=== PATIENT | male | born 1975 | race Caucasian/White ===

== ENCOUNTER 2020-03-19 01:06 | Observation (INO) | payer BC ==
[2020-03-19] MEDS ORDERED: HYDROmorphone 1 MG/ML Syringe IVPUSH STA (01:31)
[2020-03-19] MEDS ORDERED: Ondansetron 4 MG/2 ML SDV IVPUSH ONE (01:31)
[2020-03-19] MEDS ORDERED: Sodium Chloride 0.9% 1,000 ML IV SCH (01:45)
--- NOTE | 2020-03-19 01:54 | EDM.PDOC ---
ED HPI GENERAL MEDICAL PROBLEM - General Chief Complaint: Flank Pain Stated Complaint: RIGHT SIDE PAIN THAT RADIATES TO BACK Time Seen by Provider: 03/19/20 01:16 Source of Information: Reports: Patient, Family () History Limitations: Reports: No Limitations - History of Present Illness INITIAL COMMENTS - FREE TEXT/NARRATIVE: Mr. Brown is a very pleasant 44-year-old gentleman with no chronic medical problems, on no medications, who now presents the ED after developing sudden onset sharp right back pain that radiates around to his upper right abdomen/lower right chest, around 23:00 last night. States that the pain is constant, and he has not identified any modifiers, such as with position, taking deep breaths, moving, etc. He states that he took 2 Advil, which has not helped his symptoms at all. He has had nausea, and vomited once in the ER. The patient states that he had virtually identical symptoms this past Tuesday night, 03/11/2020. They resolved after about 2 to 3 hours, without treatment. The patient states that he ate dinner, consisting of meat and beans, around 18:00 last night. He has not eaten anything since. There are in the ED, the patient's initial BP is found to be mildly elevated at 158/98, otherwise, he is hemodynamically stable, afebrile, saturating 99% on room air. Other than the similar symptoms last Tuesday night, prior to 23:00 last night, the patient denies having a recent fever, chills, sore throat, ear pain, nasal or sinus congestion, cough, dyspnea, chest pain, palpitations, nausea, vomiting, constipation, diarrhea, abdominal pain, urinary symptoms, recent weight gain or weight loss, recent bloody bowel movements or black bowel movements, recent joint aches, headaches, or rashes. The patient's PCP is ANNALEE Love. His Neurosurgeon is Dr. Shai Christie. He has not received an influenza vaccine this season, and declined an offer to get one here in the ED. Right Abdomen Pain Score (Numeric/FACES): 9 - Related Data Allergies Allergy/AdvReac Type Severity Reaction Status Date / Time codeine Allergy Hallucinati Verified 03/19/20 05:50 ons Home Meds: Home Meds Multivitamin [Multivitamins] 1 each PO DAILY 07/04/15 [History] Past Medical History - Past Surgical History GI Surgical History: Reports: Appendectomy Musculoskeletal Surgical History: Reports: Arthroscopic Knee (left, x 2), Other (See Below) (Right thumb recnstruction) Social & Family History - Tobacco Use Tobacco Use Within Last Twelve Months: Smokeless Tobacco (Chews 1 can/week) Second Hand Smoke Exposure: No - Caffeine Use Caffeine Use: Reports: Coffee, Soda - Alcohol Use Alcohol Use History: Yes Alcohol Use Frequency: Rarely - Recreational Drug Use Recreational Drug Use: No - Living Situation & Occupation Living situation: Reports: , with Spouse, with Family (4 kids) Occupation: Employed ([employer] p[employer]) ED ROS GENERAL - Review of Systems Review Of Systems: Comprehensive ROS is negative, except as noted in HPI. ED EXAM, GI/ABD - Physical Exam Exam: See Below Exam Limited By: No Limitations General Appearance: Alert, WD/WN, Mild Distress (appears uncomfortable) Eyes: Bilateral: Normal Appearance, EOMI Ears: Normal External Exam, Hearing Grossly Normal Nose: Normal Inspection Throat/Mouth: Normal Inspection, Normal Lips, Normal Voice, No Airway Compromise Head: Atraumatic, Normocephalic Neck: Normal Inspection, Full Range of Motion Respiratory/Chest: No Respiratory Distress, Lungs Clear, Normal Breath Sounds, No Accessory Muscle Use Cardiovascular: Normal Peripheral Pulses, Regular Rate, Rhythm, No Edema, No Gallop, No JVD, No Murmur, No Rub GI/Abdominal Exam: Soft, No Organomegaly, No Distention, No Abnormal Bruit, No Mass, Tender (Right upper quadrant only. Nontender elsewhere, including no Rovsing sign. True Juarez sign present.), Abnormal Bowel Sounds (somewhat diminished) (Male) Exam: Deferred Back Exam: Normal Inspection, Full Range of Motion. No: CVA Tenderness (L), CVA Tenderness (R) Extremities: Normal Inspection, Normal Range of Motion, No Pedal Edema, Normal Capillary Refill Neurological: Alert, Oriented, Normal Cognition, No Motor/Sensory Deficits Psychiatric: Normal Affect Skin Exam: Warm, Dry, Intact, Normal Color, No Rash Course - Vital Signs Last Recorded V/S: Last Vital Signs Temp 36.6 C 03/19/20 05:23 Pulse 66 03/19/20 05:23 Resp 18 03/19/20 05:23 BP 116/70 03/19/20 05:23 Pulse Ox 94 L 03/19/20 05:23 - Orders/Labs/Meds Orders: Active Orders 24 hr Category Date Time Status Abdomen Ltd [US] Stat Exams 03/19/20 01:31 Taken Abdomen Pelvis w Cont [CT] Stat Exams 03/19/20 01:31 Taken Lactated Ringers [Ringers, Lactated] 1,000 ml Med 03/19/20 05:15 Active IV ASDIRECTED Medication Orders Hydromorphone HCl (Dilaudid) 1 mg IVPUSH Q1H PRN PRN Reason: Pain Lactated Ringer's (Ringers, Lactated) 1,000 mls @ 125 mls/hr IV ASDIRECTED RUBY Last Admin: 03/19/20 05:11 Dose: 125 mls/hr Documented by: KATHIE Ondansetron HCl (Zofran) 4 mg IVPUSH Q6H PRN PRN Reason: Nausea/Vomiting Labs: Laboratory Tests 03/19/20 03/19/20 03/19/20 Range/Units 01:20 01:20 04:20 WBC 10.97 H (4.23-9.07) K/mm3 RBC 4.87 (4.63-6.08) M/mm3 Hgb 13.7 (13.7-17.5) gm/dl Hct 41.4 (40.1-51.0) % MCV 85.0 (79.0-92.2) fl MCH 28.1 (25.7-32.2) pg MCHC 33.1 (32.2-35.5) g/dl RDW Std Deviation 37.7 (35.1-43.9) fL Plt Count 228 (163-337) K/mm3 MPV 9.8 (9.4-12.3) fl Neutrophils % (Manual) 68 H (40-60) % Band Neutrophils % 0 (0-10) % Lymphocytes % (Manual) 21 (20-40) % Atypical Lymphs % 0 % Monocytes % (Manual) 10 (2-10) % Eosinophils % (Manual) 1 (0.8-7.0) % Basophils % (Manual) 0 L (0.2-1.2) Platelet Estimate Adequate RBC Morph Comment Normal Sodium 142 (136-145) mEq/L Potassium 3.8 (3.5-5.1) mEq/L Chloride 104 (98-107) mEq/L Carbon Dioxide 26 (21-32) mEq/L Anion Gap 15.8 H (5-15) BUN 19 H (7-18) mg/dL Creatinine 0.9 (0.7-1.3) mg/dL Est Cr Clr Drug Dosing 105.83 mL/min Estimated GFR (MDRD) > 60 (>60) mL/min BUN/Creatinine Ratio 21.1 H (14-18) Glucose 116 H (74-106) mg/dL Calcium 9.1 (8.5-10.1) mg/dL Magnesium 1.9 (1.8-2.4) mg/dl Total Bilirubin 0.6 (0.2-1.0) mg/dL AST 18 (15-37) U/L ALT 31 (16-63) U/L Alkaline Phosphatase 76 (46-116) U/L Total Protein 7.7 (6.4-8.2) g/dl Albumin 3.9 (3.4-5.0) g/dl Globulin 3.8 gm/dL Albumin/Globulin Ratio 1.0 (1-2) Lipase 116 (73-393) U/L SARS-CoV-2 RNA (CHRIS) Negative (NEGATIVE) Meds: Medications Generic Name Dose Route Start Last Admin Trade Name Frejuan francisco PRN Reason Stop Dose Admin Hydromorphone HCl 1 mg 03/19/20 06:00 Dilaudid IVPUSH Q1H PRN Pain Lactated Ringer's 1,000 mls @ 125 mls/hr 03/19/20 05:15 03/19/20 05:11 Ringers, Lactated IV 125 mls/hr ASDIRECTED RUBY Administration Ondansetron HCl 4 mg 03/19/20 06:00 Zofran IVPUSH Q6H PRN Nausea/Vomiting Discontinued Medications Generic Name Dose Route Start Last Admin Trade Name Freq PRN Reason Stop Dose Admin Hydromorphone HCl 1 mg 03/19/20 01:31 03/19/20 01:38 Dilaudid IVPUSH 03/19/20 01:32 1 mg ONETIME STA Administration Hydromorphone HCl 1 mg 03/19/20 01:57 03/19/20 02:05 Dilaudid IVPUSH 03/19/20 01:58 1 mg ONETIME ONE Administration Sodium Chloride 1,000 mls @ 150 mls/hr 03/19/20 01:45 03/19/20 01:38 Normal Saline IV 150 mls/hr ASDIRECTED RUBY Administration Ondansetron HCl 4 mg 03/19/20 01:31 03/19/20 01:38 Zofran IVPUSH 03/19/20 01:32 4 mg ONETIME ONE Administration - Re-Assessments/Exams Free Text/Narrative Re-Assessment/Exam: 03/19/20 01:42 The patient's history and physical examination are entirely consistent with acute cholecystitis, including a true Juarez's sign. I have ordered a work-up that includes an ultrasound of the right upper quadrant, to be followed by a CT of the abdomen and pelvis with oral and IV contrast, along with several blood tests. In the meantime, the patient will be treated with IV Dilaudid, IV Zofran, and IV fluid. 03/19/20 02:25 The patient's CBC is remarkable for leukocytosis of 10.97, but with 0% bandemia. The remainder of his CBC is unremarkable. His CMP is remarkable for anion gap slightly elevated at 15.8, but with a bicarbonate normal at 26. His BUN is slightly elevated at 19, but with a Cr normal at 0.9. He has a slight hyperglycemia of 116, with the remainder of his CMP being unremarkable. His magnesium level is within normal limits at 1.9. His lipase is within normal limits at 116. 03/19/20 03:52 Ultrasound of the right upper quadrant is read by [facility] as: 1. Mild cholelithiasis with bladder distention and gallbladder polyps as above. 2. Correlation with quantitative HIDA scan with gallbladder ejection fraction calculation would be useful for further evaluation of entities such as biliary colic/dyskinesia, or chronic acalculous cholecystitis/cholecystitis with the, as indicated clinically. Abnormal diminished gallbladder ejection fraction can be helpful in predicting which patients will receive symptomatic relief following subsequent cholecystectomy. 3. Remainder of findings described as above. CT of the abdomen and pelvis with oral and IV contrast is read by [facility] as: 1. Early acute cholecystitis as above. 2. Remainder of findings described as above. 03/19/20 04:[address] Hirsch at 04:00. If the patient is feeling well enough, he can go home and follow-up with her, to arrange for an elective cho lecystectomy at a later time, however, if the patient is still in pain, she can admit him to undergo a cholecystectomy later today. I asked the patient what his preference was while Dr. Hirsch waited, and he would like to undergo the cholecystectomy as soon as possible. Dr. Hirsch therefore agreed to place the patient into observation, with the plan of him going to the operating room later today. She asked that I write bridge orders, to include LR at 125 mL/h, pain medication, and antinausea medication. She does not feel that he needs antibiotics at this time. The patient will be swabbed to test for the SARS-CoV-2 virus. 03/19/20 06:12 The patient's swab for the SARS-CoV-2 virus returned negative. Departure - Departure Time of Disposition: 04:08 Disposition: Refer to Observation Condition: Good Clinical Impression: Acute cholecystitis - Discharge Information *PRESCRIPTION DRUG MONITORING PROGRAM REVIEWED*: Not Applicable *COPY OF PRESCRIPTION DRUG MONITORING REPORT IN PATIENT LAURA: Not Applicable Sepsis Event Note (ED) - Evaluation Sepsis Screening Result: No Definite Risk - Focused Exam Vital Signs: Vital Signs Temp Pulse Resp BP Pulse Ox 03/19/20 01:13 36.1 C 86 20 158/98 H 99 - My Orders Last 24 Hours: My Active Orders 03/19/20 01:31 Abdomen Ltd [US] Stat Abdomen Pelvis w Cont [CT] Stat 03/19/20 05:15 Lactated Ringers [Ringers, Lactated] 1,000 ml IV ASDIRECTED - Assessment/Plan Last 24 Hours: My Active Orders 03/19/20 01:31 Abdomen Ltd [US] Stat Abdomen Pelvis w Cont [CT] Stat 03/19/20 05:15 Lactated Ringers [Ringers, Lactated] 1,000 ml IV ASDIRECTED
[2020-03-19] MEDS ORDERED: HYDROmorphone 1 MG/ML Syringe IVPUSH ONE (01:57)
[2020-03-19] MEDS ORDERED: Lactated Ringers 1,000 ML IV SCH (05:15)
[2020-03-19] MEDS ORDERED: HYDROmorphone 1 MG/ML Syringe IVPUSH PRN (06:00)
[2020-03-19] MEDS ORDERED: Ondansetron 4 MG/2 ML SDV IVPUSH PRN (06:00)
--- NOTE | 2020-03-19 08:26 | PCM.PREANE ---
Preanesthetic Assessment - Procedure Proposed Procedure: laparoscopic cholecystectomy - Anesthesia/Transfusion/Family Hx Anesthesia History: Prior Anesthesia Without Reaction Family History of Anesthesia Reaction: No Transfusion History: No Prior Transfusion(s) - Review of Systems General: Malaise Pulmonary: No Symptoms Cardiovascular: No Symptoms Gastrointestinal: Abdominal Pain (right side), Nausea (during night), Vomiting (during night) Neurological: No Symptoms Other: Reports: None - Physical Assessment NPO Status Date: 03/18/20 NPO Status Time: 00:00 Vital Signs: Last Vital Signs Temp 36.6 C 03/19/20 05:23 Pulse 66 03/19/20 05:23 Resp 18 03/19/20 05:23 BP 116/70 03/19/20 05:23 Pulse Ox 94 L 03/19/20 05:23 Height: 1.75 m Weight: 90.718 kg ASA Class: 2 Mental Status: Alert & Oriented x3 Airway Class: Mallampati = 1 Dentition: Reports: [place](s) Thyro-Mental Finger Breadths: 3 Mouth Opening Finger Breadths: 3 ROM/Head Extension: Full Lungs: Clear to Auscultation, Normal Respiratory Effort Cardiovascular: Regular Rate, Regular Rhythm - Lab Values: Laboratory Last Values WBC 10.97 K/mm3 (4.23-9.07) H 03/19/20 01:20 RBC 4.87 M/mm3 (4.63-6.08) 03/19/20 01:20 Hgb 13.7 gm/dl (13.7-17.5) 03/19/20 01:20 Hct 41.4 % (40.1-51.0) 03/19/20 01:20 MCV 85.0 fl (79.0-92.2) 03/19/20 01:20 MCH 28.1 pg (25.7-32.2) 03/19/20 01:20 MCHC 33.1 g/dl (32.2-35.5) 03/19/20 01:20 RDW Std Deviation 37.7 fL (35.1-43.9) 03/19/20 01:20 Plt Count 228 K/mm3 (163-337) 03/19/20 01:20 MPV 9.8 fl (9.4-12.3) 03/19/20 01:20 Neutrophils % (Manual) 68 % (40-60) H 03/19/20 01:20 Band Neutrophils % 0 % (0-10) 03/19/20 01:20 Lymphocytes % (Manual) 21 % (20-40) 03/19/20 01:20 Atypical Lymphs % 0 % 03/19/20 01:20 Monocytes % (Manual) 10 % (2-10) 03/19/20 01:20 Eosinophils % (Manual) 1 % (0.8-7.0) 03/19/20 01:20 Basophils % (Manual) 0 (0.2-1.2) L 03/19/20 01:20 Platelet Estimate Adequate 03/19/20 01:20 RBC Morph Comment Normal 03/19/20 01:20 Sodium 142 mEq/L (136-145) 03/19/20 01:20 Potassium 3.8 mEq/L (3.5-5.1) 03/19/20 01:20 Chloride 104 mEq/L (98-107) 03/19/20 01:20 Carbon Dioxide 26 mEq/L (21-32) 03/19/20 01:20 Anion Gap 15.8 (5-15) H 03/19/20 01:20 BUN 19 mg/dL (7-18) H 03/19/20 01:20 Creatinine 0.9 mg/dL (0.7-1.3) 03/19/20 01:20 Est Cr Clr Drug Dosing 105.83 mL/min 03/19/20 01:20 Estimated GFR (MDRD) > 60 mL/min (>60) 03/19/20 01:20 BUN/Creatinine Ratio 21.1 (14-18) H 03/19/20 01:20 Glucose 116 mg/dL (74-106) H 03/19/20 01:20 Calcium 9.1 mg/dL (8.5-10.1) 03/19/20 01:20 Magnesium 1.9 mg/dl (1.8-2.4) 03/19/20 01:20 Total Bilirubin 0.6 mg/dL (0.2-1.0) 03/19/20 01:20 AST 18 U/L (15-37) 03/19/20 01:20 ALT 31 U/L (16-63) 03/19/20 01:20 Alkaline Phosphatase 76 U/L (46-116) 03/19/20 01:20 Total Protein 7.7 g/dl (6.4-8.2) 03/19/20 01:20 Albumin 3.9 g/dl (3.4-5.0) 03/19/20 01:20 Globulin 3.8 gm/dL 03/19/20 01:20 Albumin/Globulin Ratio 1.0 (1-2) 03/19/20 01:20 Lipase 116 U/L (73-393) 03/19/20 01:20 SARS-CoV-2 RNA ([facility]RIS) Negative (NEGATIVE) 03/19/20 04:20 - Allergies Allergies/Adverse Reactions: Allergies Allergy/AdvReac Type Severity Reaction Status Date / Time codeine Allergy Hallucinati Verified 03/19/20 05:50 ons - Blood Blood Available: No Product(s) Available: None - Anesthesia Plan Pre-Op Medication Ordered: None - Acknowledgements Anesthesia Type Planned: General Anesthesia Pt an Appropriate Candidate for the Planned Anesthesia: Yes Alternatives and Risks of Anesthesia Discussed w Pt/Guardian: Yes Pt/Guardian Understands and Agrees with Anesthesia Plan: Yes PreAnesthesia Questionnaire Respiratory History: Reports: Other (See Below) Other Respiratory History: states childhood asthma, does not treat - Past Surgical History GI Surgical History: Reports: Appendectomy Musculoskeletal Surgical History: Reports: Arthroscopic Knee, Other (See Below) Other Musculoskeletal Surgeries/Procedures:: 2 left scopes on the knee, Right thumb reconstruction - SUBSTANCE USE Tobacco Use Status *Q: Never Tobacco User Tobacco Use Within Last Twelve Months: Smokeless Tobacco (Chews 1 can/week) Second Hand Smoke Exposure: No Days Per Week of Alcohol Use: 0 Number of Drinks Per Day: 0 Total Drinks Per Week: 0 Recreational Drug Use History: No - HOME MEDS Home Medications: Home Meds Multivitamin [Multivitamins] 1 each PO DAILY 07/04/15 [History] - CURRENT (IN HOUSE) MEDS Current Meds: Current Medications Hydromorphone HCl (Dilaudid) 1 mg IVPUSH Q1H PRN PRN Reason: Pain Lactated Ringer's (Ringers, Lactated) 1,000 mls @ 125 mls/hr IV ASDIRECTED RUBY Last Admin: 03/19/20 05:11 Dose: 125 mls/hr Documented by: Ondansetron HCl (Zofran) 4 mg IVPUSH Q6H PRN PRN Reason: Nausea/Vomiting Discontinued Medications Bupivacaine HCl/Epinephrine Bitart (Marcaine 0.5%/Epinephrine 1:200,000) Confirm Administered Dose 50 ml .ROUTE .STK-MED ONE Stop: 03/19/20 08:10 Hydromorphone HCl (Dilaudid) 1 mg IVPUSH ONETIME STA Stop: 03/19/20 01:32 Last Admin: 03/19/20 01:38 Dose: 1 mg Documented by: Hydromorphone HCl (Dilaudid) 1 mg IVPUSH ONETIME ONE Stop: 03/19/20 01:58 Last Admin: 03/19/20 02:05 Dose: 1 mg Documented by: Sodium Chloride (Normal Saline) 1,000 mls @ 150 mls/hr IV ASDIRECTED [facility] Last Admin: 03/19/20 01:38 Dose: 150 mls/hr Documented by: Lidocaine/Epinephrine (Xylocaine 1% With Epinephrine 1:100,000) Confirm Administered Dose 40 ml .ROUTE .STK-MED ONE Stop: 03/19/20 08:09 Ondansetron HCl (Zofran) 4 mg IVPUSH ONETIME ONE Stop: 03/19/20 01:32 Last Admin: 03/19/20 01:38 Dose: 4 mg Documented by:
--- NOTE | 2020-03-19 08:54 | US ---
Limited abdominal ultrasound: Multiple real-time images of the upper right abdomen were obtained. Comparison: No prior abdominal imaging is available. Liver contains no focal abnormality. Visualized portions of the pancreas show no discrete abnormality. Right kidney is not completely seen. No discrete hydronephrosis is noted. Right kidney has a length of 9.6 cm. Several small fixed defects are seen within the gallbladder which are believed to represent polyps. Two gallstones are present. No gallbladder wall thickening or biliary duct dilatation is appreciated. Proximal aorta shows no aneurysm. Inferior vena cava is patent. Main portal vein shows normal hepatopedal flow. Impression: 1. Two gallstones. Several gallbladder polyps. No gallbladder wall thickening or biliary duct dilatation is seen. 2. No additional abnormality is definitely appreciated. 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
--- NOTE | 2020-03-19 09:00 | CT ---
CT abdomen and pelvis Technique: Multiple axial sections were obtained from above the dome of the diaphragm inferiorly through the pubic symphysis. Intravenous and oral contrast was utilized. Delayed images were also obtained through the bladder. Reconstructed coronal and sagittal images were obtained. Comparison: Prior abdominal ultrasound study performed earlier on the same day (2:01 AM). Findings: Visualized lung bases shows minimal dependent atelectasis posteriorly. Liver contains no focal abnormality. Several calcified gallstones are noted. This study shows very slight gallbladder wall edema. This was not noted on prior ultrasound exam. Spleen is normal. Adrenal glands show no nodule. Pancreas is within normal limits. Aorta shows no aneurysm. No retroperitoneal adenopathy or mesenteric abnormalities are seen. No pelvic mass or adenopathy is noted. Very small fat-containing left inguinal hernia is noted. No free fluid or inflammatory change is appreciated. Delayed images show contrast within the distal ureters as well as within the bladder. Bone window settings were reviewed which show no acute osseous abnormality. Impression: 1. Two small gallstones. Gallbladder wall shows minimal edema which is not noted on prior ultrasound exam. Difficult to exclude early cholelithiasis. Please correlate. 2. Nothing acute is otherwise seen on CT study of the abdomen and pelvis. Diagnostic code #3 I agree with preliminary report from 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
--- NOTE | 2020-03-19 09:54 | PCM.HP.2 ---
H&P History of Present Illness - General Date of Service: 03/19/20 Admit Problem/Dx: Admission Diagnosis/Problem Admission Diagnosis/Problem Acute cholecystitis Source of Information: Patient, Provider History Limitations: Reports: No Limitations - History of Present Illness Initial Comments - Free Text/Narative: The patient is a 44 y/o male who presents with RUQ pain last night a few hours after eating. The pain radiated to his back. He had a similar episode one week ago. He presented to the ED and had workup with labs, RUQ ultrasound and CT abdomen. He had findings of cholecystitis on the CT scan and mild elevation in WBC. He was admitted for surgery today. Right Abdomen Pain Score (Numeric/FACES): 9 - Related Data Allergies/Adverse Reactions: Allergies Allergy/AdvReac Type Severity Reaction Status Date / Time codeine Allergy Hallucinati Verified 03/19/20 05:50 ons Home Medications: Home Meds Multivitamin [Multivitamins] 1 each PO DAILY 07/04/15 [History] Past Medical History Respiratory History: Reports: Other (See Below) Other Respiratory History: states childhood asthma, does not treat Neurological History: Reports: Other (See Below) (bulging disk in neck) - Past Surgical History GI Surgical History: Reports: Appendectomy Musculoskeletal Surgical History: Reports: Arthroscopic Knee, Other (See Below) Other Musculoskeletal Surgeries/Procedures:: 2 left scopes on the knee, Right thumb reconstruction Social & Family History - Family History Cardiac: Reports: Heart Failure, Hypertension Endocrine/Metabolic: Reports: Diabetes, type II - Tobacco Use Tobacco Use Status *Q: Never Tobacco User Second Hand Smoke Exposure: No - Caffeine Use Caffeine Use: Reports: Coffee, Soda - Alcohol Use Days Per Week of Alcohol Use: 0 Number of Drinks Per Day: 0 Total Drinks Per Week: 0 - Recreational Drug Use Recreational Drug Use: No - Living Situation & Occupation Living situation: Reports: , with Spouse, with Family (4 kids) 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[employer]) H&P Review of Systems - Review of Systems: Review Of Systems: See Below General: Reports: No Symptoms HEENT: Reports: No Symptoms Pulmonary: Reports: No Symptoms Cardiovascular: Reports: No Symptoms Gastrointestinal: Reports: Abdominal Pain Genitourinary: Reports: No Symptoms Musculoskeletal: Reports: No Symptoms Skin: Reports: No Symptoms Neurological: Reports: No Symptoms Hematologic/Lymphatic: Reports: No Symptoms Exam - Exam Exam: See Below - Vital Signs Vital Signs: Last Vital Signs Temp 36.5 C 03/19/20 08:55 Pulse 58 L 03/19/20 08:55 Resp 16 03/19/20 08:55 BP 116/66 03/19/20 08:55 Pulse Ox 97 03/19/20 08:55 Weight: 90.718 kg - Exam Quality Assessment: No: Supplemental Oxygen General: Alert, Oriented HEENT: Conjunctiva Clear, EOMI Neck: Supple Lungs: Normal Respiratory Effort Cardiovascular: Regular Rate, Regular Rhythm GI/Abdominal Exam: Soft, Non-Tender, No Distention, Hepatomegaly Extremities: Normal Inspection, No Pedal Edema Peripheral Pulses: 2+: Dorsalis Pedis (L), Dorsalis Pedis (R) Skin: Warm, Dry, Intact Neurological: Cranial Nerves Intact Neuro Extensive - Mental Status: Oriented x3, Normal Mood/Affect - Patient Data Lab Results Last 24 hrs: Laboratory Results - last 24 hr 03/19/20 03/19/20 03/19/20 Range/Units 01:20 01:20 04:20 WBC 10.97 H (4.23-9.07) K/mm3 RBC 4.87 (4.63-6.08) M/mm3 Hgb 13.7 (13.7-17.5) gm/dl Hct 41.4 (40.1-51.0) % MCV 85.0 (79.0-92.2) fl MCH 28.1 (25.7-32.2) pg MCHC 33.1 (32.2-35.5) g/dl RDW Std Deviation 37.7 (35.1-43.9) fL Plt Count 228 (163-337) K/mm3 MPV 9.8 (9.4-12.3) fl Neutrophils % (Manual) 68 H (40-60) % Band Neutrophils % 0 (0-10) % Lymphocytes % (Manual) 21 (20-40) % Atypical Lymphs % 0 % Monocytes % (Manual) 10 (2-10) % Eosinophils % (Manual) 1 (0.8-7.0) % Basophils % (Manual) 0 L (0.2-1.2) Platelet Estimate Adequate RBC Morph Comment Normal Sodium 142 (136-145) mEq/L Potassium 3.8 (3.5-5.1) mEq/L Chloride 104 (98-107) mEq/L Carbon Dioxide 26 (21-32) mEq/L Anion Gap 15.8 H (5-15) BUN 19 H (7-18) mg/dL Creatinine 0.9 (0.7-1.3) mg/dL Est Cr Clr Drug Dosing 105.83 mL/min Estimated GFR (MDRD) > 60 (>60) mL/min BUN/Creatinine Ratio 21.1 H (14-18) Glucose 116 H (74-106) mg/dL Calcium 9.1 (8.5-10.1) mg/dL Magnesium 1.9 (1.8-2.4) mg/dl Total Bilirubin 0.6 (0.2-1.0) mg/dL AST 18 (15-37) U/L ALT 31 (16-63) U/L Alkaline Phosphatase 76 (46-116) U/L Total Protein 7.7 (6.4-8.2) g/dl Albumin 3.9 (3.4-5.0) g/dl Globulin 3.8 gm/dL Albumin/Globulin Ratio 1.0 (1-2) Lipase 116 (73-393) U/L SARS-CoV-2 RNA ([facility]) Negative (NEGATIVE) Result Diagrams: 03/19/20 01:20 03/19/20 01:20 Sepsis Event Note - Evaluation Sepsis Screening Result: No Definite Risk - Focused Exam Vital Signs: Vital Signs Temp Temp Pulse Pulse Resp BP BP 03/19/20 08:55 36.5 C 58 L 16 116/66 03/19/20 05:23 36.6 C 66 18 116/70 03/19/20 01:13 36.1 C 86 20 158/98 H Pulse Ox 03/19/20 08:55 97 03/19/20 05:23 94 L 03/19/20 01:13 99 *Q Meaningful Use (ADM) - VTE Risk Assess *Q Each Risk Factor Represents 1 Point: Age 41 - 59 years, Minor Surgery Planned Total Score 1 Point Risk Factors: 2 - Problem List (1) Acute cholecystitis SNOMED Code(s): 27274425 ICD Code: K81.0 - ACUTE CHOLECYSTITIS Status: Acute Current Visit: Yes Problem List Initiated/Reviewed/Updated: Yes Orders Last 24hrs: Active Orders 24 hr Category Date Time Status Patient Status [ADT] Routine ADT 03/19/20 05:08 Active Up With Assistance [RC] ASDIRECTED Care 03/19/20 05:58 Active NPO [Nothing Per Oral Diet] [DIET] Diet 03/19/20 Breakfast Active HYDROmorphone [Dilaudid] Med 03/19/20 06:00 Active 1 mg IVPUSH Q1H PRN Lactated Ringers [Ringers, Lactated] 1,000 ml Med 03/19/20 05:15 Active IV ASDIRECTED Ondansetron [Zofran] Med 03/19/20 06:00 Active 4 mg IVPUSH Q6H PRN Code Status [Resuscitation Status] Routine Resus Stat 03/19/20 06:01 Ordered Medication Orders Hydromorphone HCl (Dilaudid) 1 mg IVPUSH Q1H PRN PRN Reason: Pain Lactated Ringer's (Ringers, Lactated) 1,000 mls @ 125 mls/hr IV ASDIRECTED [facility] Last Admin: 03/19/20 05:11 Dose: 125 mls/hr Documented by: KATHIE Ondansetron HCl (Zofran) 4 mg IVPUSH Q6H PRN PRN Reason: Nausea/Vomiting Assessment/Plan Comment:: 44 y/o gentleman with acute cholecystitis - NPO with IVF - plan for laparoscopic cholecystectomy, possible open for treatment of his acute cholecystitis. Discussed risks of bleeding, infection and bile duct injury. His written consent was obtained. - Will assess need for postoperative hospitalization based on intraoperative findings. Georgiana Hamm MD General surgery - Mortality Measure Prognosis:: Good
[2020-03-19] MEDS ORDERED: ceFAZolin 1 GM Vial IM ONE (10:00)
[2020-03-19] MEDS ORDERED: Rocuronium 50 MG/5 ML Vial ONE (10:03)
[2020-03-19] MEDS ORDERED: Lidocaine 1% 4 ML ONE (10:03)
[2020-03-19] MEDS ORDERED: Succinylcholine/Sod PF 100 MG/5 ML SYRINGE IV ONE (10:03)
[2020-03-19] MEDS ORDERED: Propofol 200 MG/20 ML SDV ONE (10:03)
[2020-03-19] MEDS ORDERED: fentaNYL 250 MCG/5 ML SDV ONE (10:04)
[2020-03-19] MEDS ORDERED: Midazolam 1 MG/ML 2 ML SDV ONE (10:04)
[2020-03-19] MEDS ORDERED: ceFAZolin 2 GM in Premix Bag 1 BAG IV ONE (10:15)
[2020-03-19] MEDS ORDERED: ceFAZolin 1 GM Vial ONE (10:28)
[2020-03-19] MEDS: Lidocaine 1% with EPINEPHrine 1:100,000 20 ML MDV ONE ×2 (10:37→11:06)
[2020-03-19] MEDS: Bupivacaine 0.5%/EPINEPHrine 1:200,000 50 ML MDV ONE ×2 (10:37→11:05)
[2020-03-19] MEDS ORDERED: Lactated Ringers 1,000 ML ONE ×2 (10:39→11:55)
[2020-03-19] MEDS ORDERED: Ondansetron 4 MG/2 ML SDV ONE (10:40)
[2020-03-19] MEDS ORDERED: ePHEDrine 50 MG/ML SDV ONE (10:43)
[2020-03-19] MEDS ORDERED: HYDROmorphone 0.5 MG/0.5 ML Syringe ONE ×2 (10:54→12:10)
[2020-03-19] MEDS ORDERED: fentaNYL 100 MCG/2 ML SDV IVPUSH PRN (10:57)
[2020-03-19] MEDS ORDERED: HYDROmorphone 0.5 MG/0.5 ML Syringe IVPUSH PRN (10:57)
--- NOTE | 2020-03-19 12:13 | PCM.OPNOTE ---
- General Post-Op/Procedure Note Date of Surgery/Procedure: 03/19/20 Operative Procedure(s): laparoscopic cholecystectomy Findings: acute cholecystitis Pre Op Diagnosis: acute cholecystitis Post-Op Diagnosis: same Anesthesia Technique: General ET Tube Primary Surgeon: Georgiana Hamm Anesthesia Provider: Andrea Herrera Pathology: gallbladder with contents Fluid Replacement, Intraop: 2,200 Output, Urine Amount: 0 EBL in mLs: 50 Complications: none apparent Condition: Good
--- NOTE | 2020-03-19 12:24 | PCM.PRNOTE ---
- Free Text/Narrative Note: OPERATIVE REPORT Date of Surgery/Procedure: March 19, 2020 Operative Procedure(s): laparoscopic cholecystectomy Findings: Acute cholecystitis Pre Op Diagnosis: Acute cholecystitis Post-Op Diagnosis: Same Anesthesia Technique: General ET Tube Primary Surgeon: Georgiana Hamm MD Anesthesia Provider: Andrea Herrera CRNA Pathology: Gallbladder with contents Fluid Replacement, Intraop: 2200cc Output, Urine Amount: 0cc EBL: 50cc Drain/Tube Comments: None Indication for the procedure: The patient is a 44-year-old gentleman who presented to the emergency department with findings of acute cholecystitis. He was admitted for observation prior to surgery.. The patient was counseled for laparoscopic cholecystectomy, with possible conversion to open. After discussion of the risks of infection, bleeding and injury to the bile duct as well as increased complication from previous intra-abdominal surgery, the patient's consent was obtained. Description of the procedure: The patient presented to the outpatient holding area on the day of the procedure. The history and physical were verified and consent was present and on the chart. The patient was taken back to the operating room and placed in supine position on the operating table. SCD boots were placed and functional prior to the start of the procedure. Preoperative antibiotics were administered according to SCIP protocol, Ancef 2 g IV. A surgical timeout was performed. The patient then had induction of general anesthesia and was intubated without difficulty. The patient was prepped and draped in standard surgical fashion. We began by making an infraumbilical vertical incision and deepened this down through subcutaneous fat to the level of the fascia. This was grasped and incised. We bluntly entered through the peritoneum and a finger sweep was done. A stay suture of 0 Vicryl was placed in the fascia. The 12 mm balloon Isabel port was then inserted into the abdomen and the balloon inflated. Insufflation was attached and we had appropriate opening pressures. The abdomen was then insufflated to 15 mmHg. We inserted a scope into the abdomen and inspected the area where we had entered. There was no evidence of injury to surrounding structures with no evidence of bile or bleeding. A TAP block was then performed using 1% lidocaine with epinephrine mixed with 0.5% bupivacaine with epinephrine. The patient was then positioned with head up and right side up to facilitate exposure of the gallbladder. We then proceeded with placing our additional ports. A 5mm port was placed in the epigastric region. Two additional 5mm ports placed under direct visualization in the right upper quadrant. Once we had sufficiently exposed the dome of the gallbladder. This was grasped and retracted cephalad. We proceeded with our dissection to expose the cystic duct and cystic artery. The cystic duct and artery were then clipped and cut using endoscopic scissors. We then proceeded to fully dissect the gallbladder off of the cystic plate using the Bovie device. The gallbladder was then placed in the Endo Catch bag and withdrawn towards the umbilical port. The gallbladder wall was inflamed and very stiff making it difficult to grasp and retract. During the dissection, there was some bile spilled in the abdomen. We then inspected the area of the dissection. The bile and blood was suctioned and irrigation was used until there was sufficient clear fluid returning with suction. There was no significant bleeding and hemostasis was achieved. We then inspected the port sites and desufflated the abdomen. The ports were then removed. The gallbladder was withdrawn through the umbilical port site. We then proceeded to close the umbilical port site using an 0 Vicryl stitch. We had good closure of the fascia. A superficial 4-0 monocryl suture was used to approximate the skin. The skin was covered with Mastisol and Steri-Strips and covered with a dry dressing. The patient tolerated the procedure well and was extubated without difficulty. He was transported to the PACU in stable condition. All sponge, needle counts correct. No immediate complications noted. Complications: None apparent Condition: Good Georgiana Hamm MD General Surgery
--- NOTE | 2020-03-19 12:28 | PCM.POSTAN ---
POST ANESTHESIA ASSESSMENT - MENTAL STATUS Mental Status: Somnolent - VITAL SIGNS Vital Signs: Last Vital Signs Temp 97.5 F 03/19/20 12:20 Pulse 58 L 03/19/20 08:55 Resp 10 L 03/19/20 12:20 BP 117/52 L 03/19/20 12:20 Pulse Ox 98 03/19/20 12:20 - RESPIRATORY Respiratory Status: Respiratory Rate WNL, Airway Patent, O2 Saturation Stable, Supplemental Oxygen - CARDIOVASCULAR CV Status: Pulse Rate WNL, Blood Pressure Stable - GASTROINTESTINAL GI Status: No Symptoms - PAIN Pain Score: 0 - POST OP HYDRATION Hydration Status: Adequate & Stable
--- NOTE | 2020-03-19 14:43 | PCM48HPAN ---
Post Anesthesia Note - EVALUATION WITHIN 48HRS OF ANESTHETIC Vital Signs in Normal Range: Yes Patient Participated in Evaluation: Yes Respiratory Function Stable: Yes Airway Patent: Yes Cardiovascular Function Stable: Yes Hydration Status Stable: Yes Pain Control Satisfactory: Yes Nausea and Vomiting Control Satisfactory: Yes Mental Status Recovered: Yes Vital Signs: Last Vital Signs Temp 98.1 F 03/19/20 13:10 Pulse 68 03/19/20 14:31 Resp 12 03/19/20 13:10 BP 113/57 L 03/19/20 14:31 Pulse Ox 96 03/19/20 14:31
[2020-03-19 18:17] VITALS: BP 126/56; PULSE 85
== END 2020-03-19 17:35 | disposition home or self-care (01) ==
LOC: JD.ED 01:06 → JD.MS 05:08
PROVIDERS: ADMIT Surgery; ATTEND Surgery
DX: K80.12 Calculus of gallbladder with acute and chronic cholecystitis without obstruction (principal); J45.909 Unspecified asthma, uncomplicated; F17.200 Nicotine dependence, unspecified, uncomplicated; Z01.812 Encounter for preprocedural laboratory examination; Z20.822 Contact with and (suspected) exposure to COVID-19; Z88.5 Allergy status to narcotic agent; Z90.49 Acquired absence of other specified parts of digestive tract
CPT/HCPCS: 36415; 47562; 74177; 76705; 80053; 83690; 83735; 85007; 85027; 87635; 96374; 96375; 99284; G0378; J0330; J0690; J1170; J2250; J2405; J2704; J2710; J3010; J3490; J7030; J7120; 00790; 99285; U0002

== ENCOUNTER 2023-01-26 06:15 | Day surgery (SDC) | payer BC ==
[~2023-01-26 06:15] MED LIST: Lactated Ringers 1,000 ML IV SCH; Sodium Chloride 0.9% 10 ML Syringe FLUSH PRN; Sodium Chloride 0.9% 10 ML Syringe FLUSH SCH
[2023-01-26] MEDS ORDERED: Lidocaine 1% 5 ML VIAL ONE (06:35)
[2023-01-26] MEDS ORDERED: Ondansetron 4 MG/2 ML SDV ONE (06:35)
[2023-01-26] MEDS ORDERED: Midazolam 1 MG/ML 2 ML SDV ONE (06:36)
[2023-01-26] MEDS ORDERED: Propofol 200 MG/20 ML SDV ONE (06:36)
[2023-01-26] MEDS ORDERED: fentaNYL 250 MCG/5 ML SDV ONE (06:36)
[2023-01-26] MEDS ORDERED: Ketorolac 30 MG/ML SDV ONE ×2 (06:41→07:59)
[2023-01-26] MEDS ORDERED: EPINEPHrine 1 MG/ML SDV ONE (07:24)
[2023-01-26] MEDS ORDERED: Bupivacaine 0.25% 10 ML SDV ONE (07:24)
[2023-01-26] MEDS ORDERED: ceFAZolin 2 GM Vial ONE (07:27)
[2023-01-26] MEDS ORDERED: Dexamethasone 4 MG/ML 5 ML MDV ONE (07:48)
[2023-01-26] MEDS ORDERED: fentaNYL 100 MCG/2 ML SDV IVPUSH PRN (07:54)
[2023-01-26] MEDS ORDERED: Ondansetron 4 MG/2 ML SDV IVPUSH PRN (07:54)
[2023-01-26] MEDS ORDERED: Lactated Ringers 1,000 ML ONE (08:22)
[2023-01-26] MEDS ORDERED: Acetaminophen/HYDROcodone 325-5 MG Tab PO PRN (08:49)
[2023-01-26 10:15] VITALS: BP 148/80; PULSE 77
== END 2023-01-26 10:32 | disposition home or self-care (01) ==
LOC: JD.SDS 06:15
PROVIDERS: ATTEND Orthopaedic Surgery
DX: S89.92XA Unspecified injury of left lower leg, initial encounter (principal); M54.12 Radiculopathy, cervical region; I10 Essential (primary) hypertension; H69.90 Unspecified Eustachian tube disorder, unspecified ear; E83.51 Hypocalcemia; S61.219A Laceration without foreign body of unspecified finger without damage to nail, initial encounter; Z79.899 Other long term (current) drug therapy; Z01.818 Encounter for other preprocedural examination; Z88.2 Allergy status to sulfonamides
CPT/HCPCS: 29877; A9270; J0171; J0690; J1100; J1885; J2250; J2405; J2704; J3010; J3490; J7120